=== PATIENT | female | born 1940 | race Caucasian/White ===

== ENCOUNTER 2017-03-17 14:08 | Observation (INO) ==
--- NOTE | 2017-03-17 14:34 | EKG Report ---
Stationary ECG Study [facility] ER Test Date: 03/17/2017 2:19:22 PM Pat Name: ZAIDA MACARIO Department: Room: 273 Gender: F Loss Prevention Coordinator: : 1940 Requested by: Gerald Puente Order Number: [id number] Reading MD: SCOTT JAMESON Intervals [place] Rate: 62 P: 64 TN: 179 QRS: 74 QRSD: 92 T: 68 QT: 400 QTc: 404 Interpretive Statements SINUS RHYTHM Electronically Signed On 03-19-17 16:40:15 CDT by SCOTT JAMESON [email or web address]
--- NOTE | 2017-03-17 14:40 | Emergency Department Note ---
Arrival - Arrival ED Nursing Triage Note: c/o transfer from [facility] from further evaluation of chest pain ., states she became dizzy after breakfast and felt nauseated., states she orginally thought she had low sugar but then continued to have chest pain , denies having SOB Mode of Arrival: Stretcher Limitations: No Limitations Source: Patient - History of Present Illness Onset (ago): hour(s) (Patient presents approximately 6 hours after onset of symptoms) <Gerald Navarro - Last Filed: 03/17/17 14:43> <Skye Rodriguez - Last Filed: 03/17/17 19:17> - Arrival Chief Complaint: Chest Pain Stated Complaint: chest pain Time Seen by Provider: 03/17/17 14:32 - History of Present Illness HPI Narrative: This 76-year-old white female presents on transfer from [facility] per Dr. Hawkins for evaluation of cardiac status. The patient states she awoke this morning feeling well but became dizzy and nauseated following breakfast. This was associated with a pressure sensation and transient shortness of breath but no vomiting or diaphoresis nor any heartburn, belching, or water brash in association with this. She was evaluated at [facility] where she had 3 normal EKGs as well as normal laboratory work including cardiac enzymes. At [facility] it is reported that with the 2 nitroglycerin her symptoms resolved and at that time Dr. Hawkins was contacted by the physician at [facility] and there was agreement that the patient would be referred here for further evaluation. Currently the patient states as she did initially at [facility] that she just does not feel good. At this point in time she denies any chest pain, shortness of breath, or nausea. In regards to her dizziness which was her initial complaint, she has had no subsequent slurring of speech, visual changes, headache, or focal deficit. As stated, she just feels bad and is unable to characterize it any better than that. (Gerald Navarro) Allergies/Adverse Reactions: Allergies Allergy/AdvReac Type Severity Reaction Status Date / Time Sulfa (Sulfonamide Allergy HIVES Verified 03/17/17 14:26 Antibiotics) Review of System - Review of System 12 point system: reviewed and no additional remarkable complaints except as stated - Review of System Constitutional: Present: as per HPI Respiratory: Present: as per HPI Cardiovascular: Present: as per HPI Gastrointestinal: Present: as per HPI <Gerald Navarro - Last Filed: 03/17/17 14:43> Medical,Surgical,& Family Hx - Medical History Cardio: History of: Hypertension Endocrine: History of: Dyslipidemia - Social History Smoking Status: Never smoker Frequency of Alcohol Use: None Type of Drug Use: None <Gerald Navarro - Last Filed: 03/17/17 14:43> Exam <Gerald Navarro - Last Filed: 03/17/17 14:43> <Skye Rodriguez - Last Filed: 03/17/17 19:17> Physical Examination: GENERAL: Well developed, well nourished white female in no acute distress. HEENT: Normocephalic. No trauma. Moist mucous membranes. EOMI. PERRLA. ENT NML NECK: Supple. No adenopathy. CARDIAC: Regular. No murmurs. Heart rate 65 CHEST: Clear to auscultation. No respiratory distress. O2 sat 99% ABDOMEN: Soft. Nontender. Active bowel sounds. EXTREMITIES: No trauma. Normal ROM. No pedal edema. SKIN: No diaphoresis. No rash. NEURO: Alert. Oriented 3. Motor, sensory, vibratory intact. No focal deficits. (Gerald Navarro) Vital Signs: Vital Signs Temperature 97.8 F 03/17/17 19:14 Pulse Rate 71 03/17/17 19:14 Respiratory Rate 16 03/17/17 19:14 Blood Pressure 174/64 03/17/17 19:14 O2 Sat by Pulse Oximetry 98 03/17/17 18:30 Course <Gerald Navarro - Last Filed: 03/17/17 14:43> <Skye Rodriguez - Last Filed: 03/17/17 19:17> Course Narrative: Patient was signed out to me by Dr. Navarro labs came back as negative including a CT head and a second cardiac panel. Discussed the case with Dr. Silva the change control specialist on-call. He said that the patient could be admitted to [facility] overnight. Will put in orders temporarily for him including at repeat of the BMP. Patient required 1 further dose of Zofran for nausea. Family is accepting of the admission to hospital and are very worried about her blood pressure we have discussed this at length they feel more comfortable. (Skye Rodriguez) Results <Gerald Navarro - Last Filed: 03/17/17 14:43> - Diagnostic Findings Procedure: CT: image reviewed by me, report reviewed by me (normal) <Skye Rodriguez - Last Filed: 03/17/17 19:17> - Labs Labs: Laboratory from [facility]: White blood cell count 11,000, hematocrit 38 sodium 137 , potassium 4.4, BUN 14, creatinine 0.8, glucose 124, CK total less than 20 myoglobin 25 CK-MB 0.5 troponin less than 0.03 (Gerald Navarro) - Impressions EKG from [place] 2 reveals normal EKG at rate of 65. EKG here: Sinus rhythm at 62 with normal MO interval and QRS duration. Normal ST segments. Normal EKG. (Gerald Navarro) Disposition <Gerald Navarro - Last Filed: 03/17/17 14:43> Case discussed with: patient <Skye Rodriguez - Last Filed: 03/17/17 19:17> Clinical Impression: Dizziness Disposition: Still a Patient Condition: Stable
[2017-03-17 15:00] LABS: Troponin I Only < 0.015 NG/ML (0.00-0.045)
--- NOTE | 2017-03-17 15:40 | CT Report ---
CT brain Indication: Vertigo, presyncope Comparison: None available Technique: Axial CT imaging of the brain is performed without contrast with 3 mm increments. Findings: No evidence of hemorrhage, mass mass effect midline shift or acute infarct seen. The brain parenchyma attenuation and differentiation appears within normal limits. The ventricles and cisterns are normal in caliber. No cranial or skull base abnormality is identified. Impression: No evidence of abnormality demonstrated. This CT exam was performed using one or more the following dose reduction techniques: Automated exposure control, adjustment of the MA and/or KV according to patient size, or use of iterative reconstruction technique. PROCEDURE INTERPRETED AT [facility] DEPARTMENT OF RADIOLOGY Final Report Signed by: Dr. Rios Manrique
[2017-03-17] MEDS ORDERED: ONDANSETRON 4 MG/2 ML VIAL ONE (16:57)
[2017-03-17] MEDS ORDERED: ONDANSETRON 4 MG/2 ML VIAL IV STA (17:12)
[2017-03-17] MEDS ORDERED: ONDANSETRON 4 MG/2 ML VIAL IV PRN (19:11)
[2017-03-17] MEDS ORDERED: MAGNESIUM SULF RIDER 2 GM in PREMIX 1 EACH IV PRN (19:11)
[2017-03-17] MEDS ORDERED: MAGNESIUM SULF RIDER 4 GM in PREMIX 1 EACH IV PRN (19:11)
[2017-03-17 20:07] LABS: Calcium 9.1 MG/DL (8.5-10.1); Osmolality,Calculated 278.4 MOS/KG (273-304); Risk Ratio 2.44
[2017-03-17] MEDS: ENOXAPARIN 40 MG/0.4 ML SYRINGE SUBCUT SCH (22:04)
--- NOTE | 2017-03-18 08:34 | Cardiology History & Physical ---
Assessment and Plan (1) Chest pain Status: Acute Assessment and plan: 1. 76-year-old WF with hypertension, dyslipidemia, remote TIA, presented with nearly 30 minutes of chest discomfort relieved with subungual nitroglycerin and some and persistent dyspnea, intermittent dizziness who is ruled out for myocardial infarction and has normal EKG. 2. She had a similar episode a year and a half ago with reportedly unremarkable stress test and echocardiogram in Dr. Harp's office; she reports she was told that heart cath was the next step if she does not get better. 3. She cannot walk well because of a previous hip replacement, and reports a severe reaction to adenosine (dysphoria) 4. I recommended stress test i.e. pharmacologic myocardial scan either in the office earlier this week, or to stay overnight and have it done here tomorrow; if she feels this is too much for her to endure, I think heart catheterization is a reasonable option. We could do a right radial heart catheterization in the morning. She really cannot decide, so I have asked her to discuss with her family when they arrive and I will answer any further questions if she has any. 5. Continue baby aspirin and adjust blood pressure medications as needed. I discussed with the patient the risks and benefits of heart catheterization including but not limited to: , stroke, heart attack, vascular damage, reaction to medicine or dye, bleeding requiring blood transfusion, failure of the procedure, and the possible need for planned or emergency surgery. I have answered all the patient's questions regarding the procedure, and the patient is agreeable to proceed. Current Visit: Yes (2) Dyspnea Status: Acute Current Visit: Yes History of Present Illness Chief complaint: cp History of present illness: Ms. Parry is a 76 year old female who reports having an episode of side pain with nausea and shortness of breath about a year and a half ago which prompted a visit to Dr. Harp. She reported he had performed stress test and echocardiogram and there was no abnormality to her knowledge. He told her that "if it does not go away heart cath is the next step". She apparently did reasonably well after that but yesterday morning developed substernal chest pain with shortness of breath and diaphoresis as well as some dizziness and nausea. It lasted about half an hour and resolved with sublingual nitroglycerin at the [facility]. She was fairly hypertensive and continued to have some shortness of breath and so she was transferred here for further evaluation. Her chest discomfort is not returned. She has history of TIA years ago where she had right leg weakness for less than 24 hours per Home Medications Medication Instructions Recorded Confirmed Type ACETAMIN/diphenhydrAMIN 500-25 1 tablet PO BEDTIME 03/17/17 03/17/17 History [Tylenol PM] Aspirin [Aspirin EC] 81 mg PO DAILY 03/17/17 03/17/17 History Atenolol 25 mg PO BEDTIME 03/17/17 03/17/17 History Atenolol 50 mg PO QAM 03/17/17 03/17/17 History Calcium Carbonate/Vitamin D3 1 each PO DAILY 03/17/17 03/17/17 History [Calcium 500 + Vit D Caplet] Lisinopril 20 mg PO DAILY 03/17/17 03/17/17 History Simvastatin 40 mg PO BEDTIME 03/17/17 03/17/17 History Allergies Allergy/AdvReac Type Severity Reaction Status Date / Time Sulfa (Sulfonamide Allergy HIVES Verified 03/17/17 14:26 Antibiotics) Medical,Surgical,& Family Hx - Medical History Cardio: History of: Hypertension HEENT: History of: HEENT Problems (cataracts) Endocrine: History of: Dyslipidemia - Surgical History Thoracic Surgeries: Patient denies;: Organ Transplant, Lobectomy Neurologic Surgeries: Patient denies: Neurologic Surgery Reproductive Surgeries: Patient denies;: Genitourinary Surgery - Social History Smoking Status: Never smoker Frequency of Alcohol Use: None Type of Drug Use: None Cardiology Physical Exam - Constitutional Vitals: Vital Signs Temp Pulse Resp BP Pulse Ox 98.5 F 54 L 18 131/65 98 03/18/17 08:00 03/18/17 08:00 03/18/17 08:00 03/18/17 08:00 03/18/17 08:00 Intake and Output 03/17/17 03/18/17 03/18/17 23:59 07:59 15:59 Intake Total 490 / 490 180 / 180 Output Total 800 / 800 Balance -310 / -310 180 / 180 Intake: Oral 490 / 490 180 / 180 Output: Urine 800 / 800 Other: Voiding Method Toilet Toilet # Voids 450 # Bowel Movements 1 0 Weight 53.977 kg 53.977 kg Patient Weight 03/18/17 23:59 Weight 53.977 kg General appearance: normal weight, no acute distress - Head Head exam: Present: normal inspection, normocephalic, atraumatic - Neck Neck exam: Present: normal inspection - Respiratory Respiratory exam: Present: clear to auscultation bilaterally. Absent: stridor, wheezes - Cardiovascular Cardiovascular exam: Present: regular rate and rhythm. Absent: diastolic murmur , rubs - Extremities Exam Extremities exam: Absent: edema - Neurological Exam Neurological exam: Present: alert, oriented X3 - Psychiatric Psychiatric exam: Present: normal affect Result/EKG - Labs CBC & BMP: 03/17/17 19:32
[2017-03-18] MEDS ORDERED: MAGNESIUM SULF RIDER 2 GM in PREMIX 1 EACH IV PRN (14:27)
[2017-03-18] MEDS ORDERED: POTASSIUM CHLORIDE RIDER 10 MEQ in PREMIX 1 EACH IV PRN (14:27)
[2017-03-18] MEDS ORDERED: DIAZEPAM 5 MG TABLET PO ONE (14:27)
[2017-03-18] MEDS ORDERED: diphenhydrAMINE CAP 25 MG CAPSULE PO ONE (14:27)
--- NOTE | 2017-03-18 14:27 | Event Note ---
Patient is have recurrent issues with chest pain. She had a prior stress test that she had a lot of side effects with the does not want repeat. I reviewed Dr. Hawkins's note. I have talked with the patient and her family which includes son and other family members. She should have a cardiac catheterization which is what she is elected to do. I discussed this procedure with her in terms of how it would be carried out as well as indications and risk. I discussed cardiac catheterization and percutaneous coronary intervention with the patient and available family. I reviewed with them the indications for the procedure and the basis of how the procedure would be carried out. I also reviewed with them the risk of the procedure which include but not necessarily limited to access site bleeding, bruising, pain, swelling or vascular injury that may require emergency vascular surgery, blood transfusion, or thrombin injection. Also discussed the possibility of stroke, myocardial infarction, arrhythmia which may require electrocardioversion, and the possibility of dye reaction that would require medical therapy. Also discussed the possibility of coronary artery injury, ruptured, closure or perforation that may require emergency bypass surgery. We also discussed the possibility of from a major complication. They voice understanding and agree to proceed. We will plan on carrying out in the morning.
[2017-03-18] MEDS ORDERED: CLORAZEPATE 3.75 MG TABLET PO PRN (14:34)
[2017-03-18] MEDS ORDERED: ACETAMINOPHEN 500 MG TABLET PO PRN (14:34)
[2017-03-18] MEDS ORDERED: ALUMINUM/MAGNES/SIMETH MAX STR 30 ML UDCUP PO PRN (14:35)
[2017-03-18] MEDS ORDERED: MAGNESIUM HYDROXIDE SUSP 30 ML UDCUP PO PRN (14:35)
[2017-03-18] MEDS ORDERED: ACETAMINOPHEN 500 MG TABLET ONE (14:38)
[2017-03-18] MEDS ORDERED: ZALEPLON 5 MG CAPSULE PO SCH (21:00)
[2017-03-18] MEDS: ENOXAPARIN 40 MG/0.4 ML SYRINGE SUBCUT SCH (21:34)
[2017-03-19] MEDS ORDERED: DIAZEPAM 5 MG TABLET PO ONE (06:00)
[2017-03-19] MEDS ORDERED: diphenhydrAMINE CAP 25 MG CAPSULE PO ONE (06:00)
--- NOTE | 2017-03-19 07:19 | Cardiology Progress Note ---
Assessment and Plan (1) Chest pain Status: Acute Assessment and plan: Patient had no chest pain since admission. She is a cardiac catheterization for definitive diagnosis because of recurrent episodes of chest pain. Current Visit: Yes (2) Dyspnea Status: Acute Assessment and plan: No distance this admission. Question whether this is cardiac versus other. Current Visit: Yes Cardiology - PN: Subj Interval history: This admission the patient had no further chest pain or shortness of breath. She has been up and around the room. She has had no other complaints. Telemetry reveals normal sinus rhythm. Without dysrhythmias. She is for cardiac catheterization possible percutaneous coronary intervention today for the purpose of definitive diagnosis and treatment. Again I discussed this with the patient as I did yesterday in detail. She voices understanding and agrees to proceed. She understands the reason and indication for the procedure as well as best she can as to how we will carried out in the wrist. Exam (Progress Note) - Constitutional Vitals: Period Temp Pulse Resp BP Sys/Garcia Pulse Ox Last 24 Hr 97.4 F-99.3 F 54-62 16-20 115-177/46-77 95-99 Exam: General appearance: normal weight, no acute distress HEENT exam: normal inspection, atraumatic Neck exam: normal inspection no JVD. No carotid bruit. Trachea is in midline Respiratory/lungs exam: clear to auscultation bilaterally good air movement. Cardiovascular exam: regular rate and rhythm, no murmur or gallop or rub. No precordial lift. Chest wall exam: nontender GI/Abdominal exam: normal bowel sounds, soft, nontender, no abdominal bruits or pulsatile masses. Extremeties/musculoskeletal: normal inspection without edema or cyanosis. Neurological exam: alert, oriented X3, no focal deficits Psychiatric exam: normal affect, normal mood. Cognitive function is grossly normal. Skin exam: normal color, warm Result/EKG - Labs CBC & BMP: 03/17/17 19:32 - Impressions Impressions: Telemetry normal sinus rhythm.
--- NOTE | 2017-03-19 07:21 | History and Physical Update ---
Sedation H&P Update - History and Physical H&P was reviewed, the patient examined and there: are no changes in the patients condition since last H&P was completed. - Dictation Physical: refer to H&P completed by admitting physician - Physical Exam Mental Status: alert and oriented Heart: regular rate and rhythm Lung: clear to auscultation Abdomen: within normal limits Vitals: within normal limits History and Physical Changes: None - Sedation Plan for Sedation: moderate Patient Consent: Procedure disscussed with patient and patinet has consented., Risks and benefits were discussed with patient,including infection,, bleeding, injury to surrounding structures, seizure, temporary nerve, Patient understands and accepts potential risks/benefits and agrees to, proceed. ASA Class: III Airway Assessment: Class II: Soft palate, uvula, fauces visible
[2017-03-19] MEDS: SODIUM CHLORIDE 0.9% 1,000 ML IV SCH ×2 (08:02→15:24)
[2017-03-19] MEDS ORDERED: LIDOCAINE 1% 20 ML VIAL ONE (08:15)
[2017-03-19] MEDS ORDERED: NITROGLYCERIN DRIP 50 MG/250 ML BOTTLE IV ONE (08:15)
[2017-03-19] MEDS ORDERED: fentaNYL 100 MCG/2 ML VIAL ONE (08:16)
[2017-03-19] MEDS ORDERED: MIDAZOLAM 2 MG/2 ML VIAL ONE (08:16)
[2017-03-19] MEDS ORDERED: VERAPAMIL 5 MG/2 ML VIAL ONE (08:16)
[2017-03-19] MEDS ORDERED: ASPIRIN 325 MG TABLET ONE (08:23)
[2017-03-19] MEDS ORDERED: ENOXAPARIN 30 MG/0.3 ML SYRINGE ONE (08:38)
--- NOTE | 2017-03-19 09:08 | Operative Note ---
Date of procedure: 03/19/17 Procedure Preformed: Left heart catheterization with coronary angiography from right radial approach. Surgeon / Physician: Michael Aguilar Probation Counselor: Juana Adan Post-op diagnosis: same Findings: Coronary arteries widely patent. LV function appears to be normal. Specimens: none sent Estimated blood loss: minimal Condition: stable Anesthesia: MAC, conscious sedation Disposition: floor
--- NOTE | 2017-03-19 09:21 | Cardiac Catheterization ---
Date of Procedure:: 03/19/17 Pre-op Diagnosis: See below see below Post-op diagnosis: same Procedure: LEFT HEART CATHETERIZATION History: Patient had recurrent episodes of chest pain or questionable angina. She does not tolerate exercise and does not tolerate Lexiscan or dobutamine. The patient needs definitive diagnosis for her chest pain and needs cardiac catheterization for this. Pre-Op diagnosis: Chest pain of anginal quality there is recurrent. Postoperative diagnosis: Some calcification of the LAD but widely patent coronary arteries. Procedures: 1. Left heart catheterization. 2. Left ventricular angiogram. 3. Selective left and right coronary angiograms. Equipment: Terumo 6 Ecuadorean radial glide arterial sheath, Terumo 5 Ecuadorean radial TIG 4.0 diagnostic. Medium/Large TR band. Medications: Preoperative Benadryl and Valium given by mouth. Lidocaine 1% local anesthesia 0.1 mls administered by myself. Intraprocedure patient received Versed 2 mgs IVP, fentanyl 50 mcgs IVP, Verapamil 5 mg/NTG 200 mcg in 5 ml NS ; Lovenox 30 mgs IVP. Complications: None immediate. Contrast: Omnipaque 88 milliliters. Description of procedure: After informed consent the patient was given preoperative medications and brought to the catheterization laboratory where their right groin and right anterior wrist and forearm was prepped and draped in usual fashion. IV sedation was then obtained after which local anesthesia with lidocaine was administered over the right radial artery. Using the double wall needle the radial artery was cannulated. Microguidewire was advanced through the cannula into the radial artery. We exchanged for the radial artery sheath that was advanced over the microguidewire. Guidewire was removed. The diagnostic 5 Ecuadorean TIG 4.0 catheter was advanced and used to cross the aortic valve and left ventricular pressures were measured with LVEDP. Left ventricular angiogram was then obtained in the right oblique view. Pressures were again measured in the left ventricle with pullback pressures were then measured in the aortic root. This same catheter was then used to cannulate the left and then right coronary arteries of which angiograms were obtained of each of these vessels in multiple projections. The angiograms were then reviewed. The diagnostic catheter was then removed over the guidewire. The TR band was then placed in the usual fashion and hemostasis obtained. Hemodynamic data: Left ventricular pressures appear to be an area we had a transducer problem and we did not repeat attempt to measure; AO root 106/68, mean 88. Left ventricular angiogram: Left ventricle is normal size and hyperdynamic with ejection fraction greater than 60%. No segmental wall motion abnormalities noted. There was no significant mitral regurgitation. Left main coronary artery angiogram: Left main coronary was essentially nonexistent. The LAD and circumflex artery actually appeared to have takeoffs from the aorta beside each other. Left anterior descending artery angiogram: LAD is a medium caliber vessel with individual takeoff from the aorta. He has diffuse calcification from its ostium through its proximal midportion but is widely patent. The LAD has small first diagonal and a medium caliber second diagonal covers a larger the anterior myocardium. The third dialysis small-caliber vessel. The LAD proper tapers from a small vessel is extends around to the apex. There are luminal irregularities of up to 10% stenosis 20% most in mid vessel but no obstructive disease. Circumflex artery angiogram: Circumflex artery has a individual takeoff from the aorta side the LAD takeoff. It is a small vessel essentially is a single obtuse marginal branch. It is widely patent. Right coronary artery angiogram: The RCA is a medium large size vessel is dominant. The PDA is a medium caliber long vessel extending to the apex. Beyond this there are several very small posterior branches. The RCA terminates in the form of a long medium to large caliber posterior branch that covers a large area of the posterior lateral myocardium. The AV node artery has is takeoff of the distal RCA. There is some mild calcification noted. There is 10-20% stenosis in the mid RCA. There is no obstructive disease. Impression: 1. Left ventricle is normal size and systolic function ejection fraction greater than 60%. 2. Left ventricular pressures not available secondary to technical issues. 3. There is no significant mitral regurgitation demonstrated. 4. The aortic valve appeared to be a tricuspid structure. 5. RCA is a medium to large size vessel with 10-20% stenosis in the mid vessel. Vessels otherwise widely patent and dominant. 6. There is no left main coronary artery with the LAD and circumflex artery having separate ostia of the aorta. 7. Circumflex artery is small and essentially a single obtuse marginal branch that is widely patent. 8. The LAD has diffuse proximal to mid calcium but is widely patent. There is significant stenosis or other disease except some 10 and at worst 20% stenosis. Discussion: This patient be monitored post catheterization. We will discharge the patient later today if she remains stable. We will follow-up on the patient. Implants: None Anesthesia: local, moderate conscious sedation Surgeon / Physician: Michael Aguilar Terrazzo Polisher: other (Juana BAL) Estimated blood loss: minimal Specimens: none sent Condition: stable Disposition: floor - Medications / Follow-up
--- NOTE | 2017-03-19 10:05 | Event Note ---
Patient right wrist is stable post catherization. Discussed findings with patient and daughter. Needs to continure meds and follow up with me as scheduled for next month. Can be discharged later today. Will make an appointment with GI med to evaluate for GI source.
--- NOTE | 2017-03-19 16:00 | Discharge Summary ---
Hospital Course - Hospital Course Hospital Course: [employer] Specialist: Dr Hawkins (new) previously Dr. Harp Patient presented to the ER with complaints of substernal chest pain. CIE negative and EKG was unremarkable. Patient had intermittent chest discomfort while admitted and for this reason, underwent elective LHC March 19, [address] Aguilar. The following impression is noted: Impression: 1. Left ventricle is normal size and systolic function ejection fraction greater than 60%. 2. Left ventricular pressures not available secondary to technical issues. 3. There is no significant mitral regurgitation demonstrated. 4. The aortic valve appeared to be a tricuspid structure. 5. RCA is a medium to large size vessel with 10-20% stenosis in the mid vessel. Vessels otherwise widely patent and dominant. 6. There is no left main coronary artery with the LAD and circumflex artery having separate ostia of the aorta. 7. Circumflex artery is small and essentially a single obtuse marginal branch that is widely patent. 8. The LAD has diffuse proximal to mid calcium but is widely patent. There is significant stenosis or other disease except some 10 and at worst 20% stenosis. She tolerated the procedure well and without complication and was returned to the telemetry unit in stable condition. Right radial approach used. Post cath , no evidence of hematoma, radidal pulse 3+. Capillary refill brisk. She and daughter are anxious for release home. Having felt she met maximal medical therapy, patient is being discharged home in stable condition. Patient will resume all pre-admission medications. - Time spent with patient Time with patient DS: Greater than 30 minutes Diagnosis - Discharge Diagnosis (1) Hypertension Status: Chronic (2) Chest pain Status: Resolved (3) SOB (shortness of breath) Status: Resolved (4) Dyslipidemia Status: Chronic Specialty Discharge - Follow Up or Referrals Follow up with: Chester Hawkins MD [Physician] - (2-3 WEEKS. ) Discharge Plan - Discharge Data Disposition: Disch To Home/Self Care Condition at Discharge: Stable Discharge Diet: heart healthy Activity: other (post cath expectations) Hygiene: no restrictions Weight Bearing at Discharge: other (post cath expectations) Driving: no restrictions Contact your physician if you experience:: fever over 101, Difficulty voiding, Redness or swelling, Nausea/Vomiting, Shortness of breath, Bleeding, pain uncontrolled by pain medications - Discharge Medications Continue ACETAMIN/diphenhydrAMIN 500-25 [Tylenol PM] 1 tablet PO BEDTIME Calcium Carbonate/Vitamin D3 [Calcium 500 + Vit D Caplet] 1 each PO DAILY Aspirin [Aspirin EC] 81 mg PO DAILY Simvastatin 40 mg PO BEDTIME Lisinopril 20 mg PO DAILY Atenolol 50 mg PO QAM Atenolol 25 mg PO BEDTIME - Follow Up or Referral - Forms/Instructions Exam - Constitutional Vitals: Period Temp Pulse Resp BP Sys/Garcia Pulse Ox Last 24 Hr 95.8 F-99.3 F 51-62 16-20 108-177/46-77 92-99 Exam: General appearance: normal weight, no acute distress - Head Head exam: Present: normal inspection, normocephalic, atraumatic - Neck Neck exam: Present: no JVD or thyromegaly noted. - Respiratory Respiratory exam: Present: clear to auscultation bilaterally. Absent: stridor, wheezes - Cardiovascular Cardiovascular exam: Present: regular rate and rhythm. Absent: diastolic murmur , rubs ABDOMEN: soft, non-tender with normoactive BS. - Extremities Exam Extremities exam: Absent: edema, clubbing - Neurological Exam Neurological exam: Present: alert, oriented X3. No hemiparesis or paralysis - Psychiatric Psychiatric exam: Present: normal affect, normal mood. INTEGUMENTARY: NO SKIN BREAK DOWN OR RASHES NOTED. Discharge Results Procedures and tests throughout hospitalization: Pending Orders 03/19/17 08:16 CL heart Stat 03/20/17 04:00 Basic Metabolic Panel IN AM CBC [Comp Blood Count Auto Diff] IN AM - Imaging and Cardiology Cardiology Procedure: report reviewed by Procedure: Chest x-ray: report reviewed by DS: Provider Date of admission: 03/17/17 19:11 Primary care physician: . No PCP Attending physician on admission: Chester Tomlinson Discharging clinician: Marilee Diego NP Expected date of discharge: 03/19/17
[2017-03-19 16:51] VITALS: BP 146/67
== END 2017-03-19 17:18 | disposition home or self-care (01) ==
LOC: EDUNIT# → EDBD → N.ED 14:08 → N.EDINP 14:08 → N.TELES 20:05
PROVIDERS: ADMIT Internal Medicine Cardiovascular Disease; ATTEND Internal Medicine Cardiovascular Disease
PROC: CLCCHCL (ICD-10-PCS; 2017-03-19 09:45)